=== PATIENT | female | born 1970 | race African-American/Black ===

== ENCOUNTER 2022-01-17 19:53 | Emergency (ER) | payer OTHER ==
[~2022-01-17] VITALS: Ht 160 cm; Wt 81.0 kg
[2022-01-17 21:12] VITALS: BP 156/92
== END 2022-01-18 01:04 | disposition left against medical advice (07) ==
LOC: ER 19:56
DX: M54.2 Cervicalgia (principal); M54.59 Other low back pain; Z53.21 Procedure and treatment not carried out due to patient leaving prior to being seen by health care provider; V48.5XXA Car driver injured in noncollision transport accident in traffic accident, initial encounter; Y93.89 Activity, other specified; Y92.89 Other specified places as the place of occurrence of the external cause; Y99.8 Other external cause status